=== PATIENT | female | born 1975 | race Native Hawaiian/Other Pacific Islander ===

== ENCOUNTER 2017-11-23 15:49 | Inpatient (IN) | payer BC ==
[2017-11-23 17:26] LABS: BASO % 0.7 % (0.0-2.0); EOS % 0.8 % (0.0-4.0); HEMOGLOBIN 13.8 g/dL (11.0-16.0); LYMPH # 1.1 K/uL (1.0-4.3); LYMPH % 25.2 % (20.0-40.0); MEAN CELL VOLUME 91.4 fL (81.0-99.0); MEAN CORPUSCULAR HEMOGLOBIN 31.5 pg (27.0-31.0); MEAN CORPUSCULAR HGB CONC 34.4 g/dL (33.0-37.0); MEAN PLATELET VOLUME 8.5 fL (7.2-11.7); MONO # 0.4 K/uL (0.0-0.8); NEUT # 2.7 K/uL (1.8-7.0); NEUT % 63.3 % (50.0-75.0); RBC 4.37 Mil/uL (3.80-5.20); RED CELL DISTRIBUTION WIDTH 14.7 % (11.5-14.5); WHITE BLOOD COUNT 4.3 K/uL (4.8-10.8)
[2017-11-23 17:33] LABS: HCG,QUALITATIVE URINE NEGATIVE (NEGATIVE); SQUAMOUS EPITHIAL 1 /hpf (0-5); URINE BACTERIA OCC (<OCC); URINE BILIRUBIN NEGATIVE (NEGATIVE); URINE CLARITY Clear (Clear); URINE COLOR Straw (YELLOW); URINE GLUCOSE (UA) NORMAL (Normal); URINE PROTEIN NEGATIVE (NEGATIVE); URINE UROBILINOGEN NORMAL mg/dL (0.2-1.0)
[2017-11-23 17:37] LABS: URINE BLOOD 1+ (NEGATIVE); URINE LEUKOCYTE ESTERASE 1+ Leu/uL (Negative)
[2017-11-23 17:38] LABS: BARBITURATES, UR NEGATIVE (NEGATIVE); BENZODIAZEPINES, UR NEGATIVE (NEGATIVE); OPIATES, UR NEGATIVE (NEGATIVE); PHENCYCLIDINE, UR NEGATIVE (NEGATIVE)
[2017-11-23 17:47] LABS: ALB/GLOB RATIO 1.6 (1.0-2.1); BLOOD UREA NITROGEN 6 mg/dL (7-17); CALCIUM 9.4 mg/dl (8.6-10.4); GFR NON-AFRICAN AMERICAN > 60
[2017-11-23 17:54] LABS: ALT/SGPT 439 U/L (9-52); AST/SGOT 711 U/L (14-36)
--- NOTE | 2017-11-23 19:20 | C.PDOC ---
History Of Present Illness 42 year old female presents to the ED requesting detox from alcohol. Patient has a history of daily alcohol abuse. Currently she offers no physical complaints. Patient denies any suicidal ideation, homicidal ideation, or hallucinations. Time Seen by Provider: 11/23/17 16:33 Chief Complaint (Nursing): Substance Abuse History Per: Patient History/Exam Limitations: no limitations Onset/Duration Of Symptoms: Days Current Symptoms Are (Timing): Still Present Modifying Factor(s): Alcohol Past Medical History Reviewed: Historical Data, Nursing Documentation, Vital Signs Vital Signs: Last Vital Signs Temp 99 F 11/23/17 21:00 Pulse 87 11/23/17 21:00 Resp 18 11/23/17 21:00 BP 147/99 H 11/23/17 21:00 Pulse Ox 99 11/23/17 21:00 - Medical History PMH: GERD Other Surgeries: Breast biopsy Family History: States: No Known Family Hx - Social History Hx Alcohol Use: Yes Hx Substance Use: No Review Of Systems Except As Marked, All Systems Reviewed And Found Negative. Constitutional: Negative for: Fever Cardiovascular: Negative for: Chest Pain Respiratory: Negative for: Shortness of Breath Gastrointestinal: Negative for: Vomiting Neurological: Positive for: Other (alcohol abuse) Psych: Negative for: Suicidal ideation (or homicidal ideation), Withdrawal Physical Exam - Physical Exam Appears: Non-toxic, No Acute Distress Skin: Normal Color, Warm, Dry Head: Atraumatic, Normacephalic Eye(s): bilateral: Normal Inspection Oral Mucosa: Moist Neck: Normal ROM Chest: Symmetrical Cardiovascular: Rhythm Regular, No Friction Rub, No Murmur Respiratory: Normal Breath Sounds, No Accessory Muscle Use, Other (no respiratory distress) Gastrointestinal/Abdominal: Bowel Sounds (active), Soft, No Tenderness Back: Normal Inspection, No CVA Tenderness Extremity: Normal ROM, No Swelling Extremity: Bilateral: Atraumatic, Normal Color And Temperature, Normal ROM Neurological/Psych: Oriented x3, Normal Speech, Normal Motor Gait: Steady ED Course And Treatment - Laboratory Results Result Diagrams: 11/23/17 17:16 11/23/17 17:16 O2 Sat by Pulse Oximetry: 97 (RA) Pulse Ox Interpretation: Normal Medical Decision Making Medical Decision Making: Plan: Blood work and urine sent. Case discussed with nuclear worker technician, patient accepted under Dr. Miller service. 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 - Scribe Statement The provider has reviewed the documentation as recorded by the Scribe (Marah Gonzalez) All medical record entries made by the Scribe were at my direction and personally dictated by me. I have reviewed the chart and agree that the record accurately reflects my personal performance of the history, physical exam, medical decision making, and the department course for this patient. I have also personally directed, reviewed, and agree with the discharge instructions and disposition.
--- NOTE | 2017-11-23 19:21 | C.PDOC ---
Time Seen by Provider: 11/23/17 16:33 Chief Complaint (Nursing): Substance Abuse Past Medical History Vital Signs: Last Vital Signs Temp 98.8 F 11/23/17 16:04 Pulse 85 11/23/17 16:04 Resp 18 11/23/17 16:04 BP 141/95 H 11/23/17 16:04 Pulse Ox 97 11/23/17 16:04 - Social History Hx Alcohol Use: Yes Hx Substance Use: No ED Course And Treatment - Laboratory Results Result Diagrams: 11/23/17 17:16 11/23/17 17:16 O2 Sat by Pulse Oximetry: 97 Disposition - Disposition Forms: [facility] ([facility])
--- NOTE | 2017-11-23 21:02 | PCM.BM ---
<Barby Montoya - Last Filed: 11/23/17 21:02> Treatment Plan Problems - Problems identified on initial assessmt Potential for alcohol withdrawal Date Initiated: 11/23/17 Time Initiated: 21:02 Assessment reference: NA Status: Active Treatment assets and liabiliti Patient Assests: ADL independent, negotiates basic needs, cognitively intact Patient Liabilities: substance abuse (Alcohol), other (homelessness) - Milieu Protocol Maintain good personal hygiene: daily Encourage regular showers, daily Remind patient to perform daily oral care, daily Assist patient to perform ADL's Conduct patient checks and document Observation sheet: Q15 minutes Maintain personal safety: every shift Educate patient to report safety concerns to staff, every shift Monitor environment for contraband/sharps Medication safety: Monitor for expected outcome, potential side effects: every shift, Assess barriers to learning: every shift, Assess readiness for medication education: every shift <Magalys Love - Last Filed: 11/24/17 13:40> - Diagnosis (1) Alcohol dependence Status: Acute Interventions: 11/24/17 13:40 * Assess 7x/week regarding severity of withdrawal * Educate regarding risks, benefits, side effects and alternatives of medications * Use Motivational Interviewing for abstinence * Use CBT for relapse prevention * Medication management for withdrawal symptoms * Encourage medication assisted treatment * <Shaina Cesar - Last Filed: 11/26/17 14:05> Family Contact Family involvement: Famliy/SO not involved - Goals for Treatment Patient goals for treatment: Complete detox and apply for short-term rehab program. Discharge/Continuing Care - Education Needs Education Needs: Patient Medication, Patient Diagnosis/Disease Process, Patient Coping Skills, Patient Anger Management skills, Patient Placement options, Patient Community resources - Discharge Discharge Criteria: No longer exhibiting s/s of withdrawal, Reduction of target symptoms Discharge to:: Substance Abuse Rehab - Treatment Team Participation Patient/Family/SO Statement: 11/26/17 14:03 "I wanna go to [place]. I actually called them for rehab before I came in here..." Discussed with Family/SO: No Was Patient/Family/SO present at Treatment Team Meeting: Yes
[2017-11-24] MEDS: Multiple Vitamins Tab PO SCH (10:57)
[2017-11-24] MEDS: Pantoprazole 20 mg EC Tab PO SCH (10:57)
--- NOTE | 2017-11-24 13:40 | PCM.PSYCH ---
Initial Psychiatric Evaluation - Initial Psychiatric Evaluation Type of Admission: Voluntary Legal Status: Capacity Chief Complaint (in patient's own words): "I have to stop alcohol" History of Present Illness and Precipitating Events: The patient is seen, chart reviewed and case discussed. This is a 41-year-old single English Tuvaluan female, currently homeless and unemployed and she has no children. 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 She blames alcohol for this. She drinks a pint or more every day and she is started when she was 19 years old but it became a problem drinking in 2013. However, this is her first detox but she was at [facility] one time in the past for rehabilitation. She denies drugs and cigarettes. She reports significant withdrawal symptoms, nearing DTs. Past psych history: She feels depressed but hasn't been treated and is not suicidal. Family psych history: Father was an alcoholic, . Medical history: She has GERD and spotting for 2 weeks since she had her IUD placed. Also, her LFTs are extremely elevated, will rule out cirrhosis Current Medications: Active Medications Generic Name Dose Route Start Last Admin Trade Name Freq PRN Reason Stop Dose Admin Clonidine HCl 0.1 mg 11/23/17 20:28 11/23/17 21:22 Catapres PO 0.1 mg Q8 PRN Administration alcohol withdrawal Folic Acid 1 mg 11/24/17 10:00 11/24/17 10:57 Folic Acid PO 1 mg DAILY SHUN Administration Lorazepam 1 mg 11/23/17 20:27 11/24/17 09:01 Ativan PO 1 mg Q4 PRN Administration alcohol withdrawal Lorazepam 2 mg 11/24/17 10:00 11/24/17 10:57 Ativan PO 11/28/17 09:59 2 mg Q6H SHUN Administration Taper Multivitamins 1 tab 11/24/17 10:00 11/24/17 10:57 Hexavitamin PO 1 tab DAILY SHUN Administration Pantoprazole Sodium 20 mg 11/24/17 10:00 11/24/17 10:57 Protonix Ec Tab PO 20 mg DAILY SHUN Administration Thiamine HCl 100 mg 11/24/17 10:00 11/24/17 10:57 Vitamin B1 Tab PO 100 mg DAILY SHUN Administration Trazodone HCl 50 mg 11/23/17 20:29 Desyrel PO HS PRN Insomnia Past Psychiatric History - Past Psychiatric History Previous Treatment History: None Pertinent Medical Hx (Current Medical&Sleep Prob, Allergies): Allergies Allergy/AdvReac Type Severity Reaction Status Date / Time No Known Allergies Allergy Verified 11/23/17 16:08 Lansoprazole 15 mg PO DAILY 11/23/17 Review of Systems - Neurological Neurological: Tremor - Psychiatric Psychiatric: Abnormal Sleep Pattern, Anhedonia, Anxiety, Depression, Difficulty Concentrating. absent: Hallucinations, Homicidal Ideation, Paranoia, Suicidal Ideation Mental Status Examination - Personal Presentation Personal Presentation: Looks stated age - Affect Affect: Constricted - Motor Activity Motor Activity: Calm - Reliability in Providing Information Reliability in Providing Information: Good - Speech Speech: Organized - Mood Mood: Depressed, Anxious - Formal Thought Process Formal Thought Process: No Impairment - Cognitive Functions Orientation: Person, Place, Situation, Time Sensorium: Alert Attention/Concentration: Attentive Estimate of Intelligence: Average Judgement: Intact, as evidence by: Insight regarding need for hospitalization Memory: Recent intact, as evidence by: Ability to recall events of the day, Remote intact, as evidenced by: Abilit to recall sig. life events - Risk Risk: Seizure, Withdrawal, Diminished functioning - Strength & Assets Inventory Strength & Assets Inventory: Cooperative - Limitations Limitations: Living alone, Other DSM 5 DX - DSM 5 DSM 5 Diagnosis: alcohol withdrawal Alcohol use disorder, severe Depressive disorder unspecified - Recommended/Plan of Treatment Treatment Recommendations and Plan of Treatment: Taper withAtivan due to very elevated LFTs Protonix for GERD Gabapentin for augmentation if needed As needed medications All risks, benefits and alternatives of the meds discussed, and the pt agreed and understood. Attend groups and activities Supportive therapy and psychoeducation [place] for abstinence CBT for relapse prevention Encourage MAT Refer to rehab or IOP, and self-help groups Smoking cessation with [place] Nicotine patch if needed 34 min Projected ELOS: 5 days Prognosis: good with treatment
--- NOTE | 2017-11-24 19:32 | CP.PCM.CON ---
History of Present Illness - History of Present Illness History of Present Illness: 42 yo female G0 and with c/o of irregular bleeding on/off since Mirena IUD inserted in June 2017 Denies any Hx of irregular menses or any other Manager Home HX C/O's of smelly vaginal discharge for the past few weeks Requesting STD's testing to be done Review of Systems - Reproductive: Female Reproductive:Female: Spotting Between Cycles, Vaginal Discharge (for few weeks. No itching or burning), Vaginal Dryness (for a couple of weeks. Denies vaginal itching or burning), Vaginal Odor - Menstruation Menstruation: Abnormal Vaginal Bleeding Past Patient History - Past Medical History & Family History Past Medical History?: Yes - Past Social History Smoking Status: Never Smoked Alcohol: Other (Admitted for Alcohol detox) - CARDIAC Hx Cardiac Disorders: No (Patient denied) Hx Hypertension: No (Patient denied) - PULMONARY Hx Tuberculosis: No (Patient denied) - NEUROLOGICAL HX Cerebrovascular Accident: No (Patient denied) Hx Seizures: No (Patient denied) - HEMATOLOGICAL/ONCOLOGICAL Hx Cancer: No (Patient denied) Hx Human Immunodeficiency Virus (HIV): No (Patient denied) - MUSCULOSKELETAL/RHEUMATOLOGICAL Hx Falls: No - GASTROINTESTINAL Hx Gastrointestinal Disorders: Yes Hx Gastroesophageal Reflux: Yes - GENITOURINARY/GYNECOLOGICAL Hx Sexually Transmitted Disorders: No (Patient denied) Hx Urinary Tract Infection: Yes (and treated, per patient) - PSYCHIATRIC Hx Substance Use: Yes (Alcohol) - SURGICAL HISTORY Hx Surgeries: Yes Hx Breast Biopsy: Yes (RIGHT) - ANESTHESIA Hx Anesthesia: Yes Hx Anesthesia Reactions: No Meds Allergies/Adverse Reactions: Allergies Allergy/AdvReac Type Severity Reaction Status Date / Time No Known Allergies Allergy Verified 11/23/17 16:08 - Medications Medications: Current Medications Clonidine HCl (Catapres) 0.1 mg PO Q8 PRN PRN Reason: alcohol withdrawal Last Admin: 11/23/17 21:22 Dose: 0.1 mg Folic Acid (Folic Acid) 1 mg PO DAILY SHUN Last Admin: 11/24/17 10:57 Dose: 1 mg Lorazepam (Ativan) 1 mg PO Q4 PRN PRN Reason: alcohol withdrawal Last Admin: 11/24/17 09:01 Dose: 1 mg Lorazepam (Ativan) 2 mg PO Q6H SHUN PRN Reason: Taper Stop: 11/28/17 09:59 Last Admin: 11/24/17 16:30 Dose: 2 mg Multivitamins (Hexavitamin) 1 tab PO DAILY [facility] Last Admin: 11/24/17 10:57 Dose: 1 tab Pantoprazole Sodium (Protonix Ec Tab) 20 mg PO DAILY [facility] Last Admin: 11/24/17 10:57 Dose: 20 mg Thiamine HCl (Vitamin B1 Tab) 100 mg PO DAILY [facility] Last Admin: 11/24/17 10:57 Dose: 100 mg Trazodone HCl (Desyrel) 50 mg PO PRN PRN Reason: Insomnia Physical Exam - Constitutional Appears: No Acute Distress - Exam Speculum exam: Cervical Discharge (Whittish, fishy smell discharge, No vaginal bleeding or spoting noted) Bimanual exam: NORMAL BIMANUAL EXAM Results - Vital Signs Recent Vital Signs: Last Vital Signs Temp 98.4 F 11/24/17 18:35 Pulse 74 11/24/17 18:35 Resp 18 11/24/17 18:35 BP 133/93 H 11/24/17 18:35 Pulse Ox 98 11/24/17 18:35 - Labs Result Diagrams: 11/23/17 17:16 11/23/17 17:16 Assessment & Plan - Assessment and Plan (Free Text) Assessment: 1. Irregular menses for the past 2-3 months and probably related to Mirena IUD, a common side effect, or Pre-menopausal state. No bleeding at present 2. IUD string visualized and palpated and appear correctly placed 3. Vaginal discharge, fishy smell and clinical c/w BV 4. Requested STD's to be done and ordered 5. Hx of Benign breast lump excised 6. Last PAP Smear at beginning of year and always WNL, per patient Plan: STD's ordered Started on Flagyl and Diflucan Trich culture obtained and sent GC and Chlamydia ordered in urine Advised to f/up with her Christmas Tree Farmer upon discharge Counseled re safe sex practices - Date & Time Date: 11/24/17 Time: 19:45
--- NOTE | 2017-11-25 09:29 | PCM.PYCHPN ---
Psychiatric Progress Note - Psychiatric Progress Note Patient seen today, length of contact: 16 min Medication Change: Yes Medical Record Reviewed: Yes Mental Status Examination - Cognitive Function Orientation: Person, Place, Situation, Time Memory: Intact Attention: WNL Concentration: Poor Association: WNL Fund of Knowledge: Poor - Mood Mood: Depressed, Anxious - Affect Affect: Constricted - Speech Speech: Soft - Formal Thought Process Formal Thought Process: No Impairment - Suicidal Ideation Suicidal Ideation: No - Homicidal Ideation Homicidal Ideation: No Goal/Treatment Plan - Goal/Treatment Plan Need for Continued Stay: Severe depression anxiety, Severe functional impairment Progress Toward Problem(s) and Goals/Treatment Plan: alcohol withdrawal Alcohol use disorder, severe Depressive disorder unspecified Taper withAtivan due to very elevated LFTs Protonix for GERD Gabapentin for augmentation if needed As needed medications All risks, benefits and alternatives of the meds discussed, and the pt agreed and understood. Attend groups and activities Supportive therapy and psychoeducation [place] for abstinence CBT for relapse prevention Encourage MAT Refer to rehab or IOP, and self-help groups Smoking cessation with [place] Nicotine patch if needed
[2017-11-25] MEDS: Multiple Vitamins Tab PO SCH (10:05)
[2017-11-25] MEDS: Pantoprazole 20 mg EC Tab PO SCH (10:05)
[2017-11-25] MEDS ORDERED: Bacitracin Ointment 30 GM TUBE TOP PRN (11:39)
[2017-11-26 09:15] LABS: HEPATITIS B SURFACE AG Negative (NEGATIVE)
[2017-11-26] MEDS: Multiple Vitamins Tab PO SCH (09:19)
[2017-11-26] MEDS: Pantoprazole 20 mg EC Tab PO SCH (09:19)
[2017-11-26 09:32] LABS: HEPATITIS C ANTIBODY NEGATIVE (NEGATIVE)
--- NOTE | 2017-11-26 14:29 | PCM.PYCHPN ---
Psychiatric Progress Note - Psychiatric Progress Note Patient seen today, length of contact: 17 min Patient Chief Complaint: "I am not well" Problems Identified/Issues Discussed: The pt is seen, chart reviewed, case discussed with staff. The pt is compliant with medications and reports no side-effects. Symptoms are improving but needs more time to stabilize. Pt attends groups and activities. Support given, psycho-education provided. After care discussed. Medication Change: Yes (detox changes daily) Medical Record Reviewed: Yes Mental Status Examination - Cognitive Function Orientation: Person, Place, Situation, Time Memory: Intact Attention: WNL Concentration: Poor Association: WNL Fund of Knowledge: Poor - Mood Mood: Depressed, Anxious - Affect Affect: Constricted - Speech Speech: Soft - Formal Thought Process Formal Thought Process: No Impairment - Suicidal Ideation Suicidal Ideation: No - Homicidal Ideation Homicidal Ideation: No Goal/Treatment Plan - Goal/Treatment Plan Need for Continued Stay: Severe depression anxiety, Discharge may exacerbated symptoms, Severe functional impairment Progress Toward Problem(s) and Goals/Treatment Plan: Taper withAtivan due to very elevated LFTs Protonix for GERD Gabapentin for augmentation if needed As needed medications All risks, benefits and alternatives of the meds discussed, and the pt agreed and understood. Attend groups and activities Supportive therapy and psychoeducation [place] for abstinence CBT for relapse prevention Encourage MAT Refer to rehab or IOP, and self-help groups Smoking cessation with [place] Nicotine patch if needed Estimated Date of D/C: 11/28/17
[2017-11-27 08:20] LABS: ALB/GLOB RATIO 1.4 (1.0-2.1); ALBUMIN 3.9 g/dL (3.5-5.0); ALT/SGPT 301 U/L (9-52); AST/SGOT 244 U/L (14-36); BLOOD UREA NITROGEN 14 mg/dL (7-17); GFR NON-AFRICAN AMERICAN > 60
[2017-11-27] MEDS: Pantoprazole 20 mg EC Tab PO SCH (09:34)
[2017-11-27] MEDS: Multiple Vitamins Tab PO SCH (09:34)
[2017-11-27 13:05] VITALS: RESP 18
--- NOTE | 2017-11-27 14:34 | PCM.PYCHPN ---
Psychiatric Progress Note - Psychiatric Progress Note Patient seen today, length of contact: 17 min Patient Chief Complaint: "I am not well" Problems Identified/Issues Discussed: The pt is seen, chart reviewed, case discussed with staff. The pt is compliant with medications and reports no side-effects. Symptoms are improving but needs more time to stabilize. Pt attends groups and activities. Support given, psycho-education provided. After care discussed. Medication Change: Yes (detox changes daily) Medical Record Reviewed: Yes Mental Status Examination - Cognitive Function Orientation: Person, Place, Situation, Time Memory: Intact Attention: WNL Concentration: Poor Association: WNL Fund of Knowledge: Poor - Mood Mood: Depressed, Anxious - Affect Affect: Constricted - Speech Speech: Soft - Formal Thought Process Formal Thought Process: No Impairment - Suicidal Ideation Suicidal Ideation: No - Homicidal Ideation Homicidal Ideation: No Goal/Treatment Plan - Goal/Treatment Plan Need for Continued Stay: Severe depression anxiety, Discharge may exacerbated symptoms, Severe functional impairment Progress Toward Problem(s) and Goals/Treatment Plan: Taper withAtivan due to very elevated LFTs Protonix for GERD Gabapentin for augmentation if needed As needed medications All risks, benefits and alternatives of the meds discussed, and the pt agreed and understood. Attend groups and activities Supportive therapy and psychoeducation [place] for abstinence CBT for relapse prevention Encourage MAT Refer to rehab or IOP, and self-help groups Smoking cessation with [place] Nicotine patch if needed Estimated Date of D/C: 11/28/17
--- NOTE | 2017-11-28 08:38 | PCM.PYCHDC ---
Mental Status Examination - Mental Status Examination Orientation: Person Discharge Summary - Discharge Note Consultations:: List each consultation separately and include: 1. Reason for request. 2. Findings. 3. Follow-up Summary of Hospital Course include:: 1. Description of specific treatment plan utilized for patients during their course of treatmen. 2. Summarize the time- course for resolution of acute symptoms and/or regressed behaviors. 3. Describe issues identified and worked on during hospitalization. 4. Describe medication utilized. 5. Describe medical problems identified and treated. 6. Reassessment of suicide risk Summary of Hospital Course: The patient is seen, chart reviewed and case discussed. This is a 41-year-old single Irish [place]an female, currently homeless and unemployed and she has no children. 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 She blames alcohol for this. She drinks a pint or more every day and she is started when she was 19 years old but it became a problem drinking in 2013. However, this is her first detox but she was at [facility] one time in the past for rehabilitation. She denies drugs and cigarettes. She reports significant withdrawal symptoms, nearing DTs. Past psych history: She feels depressed but hasn't been treated and is not suicidal. Family psych history: Father was an alcoholic, . Medical history: She has GERD and spotting for 2 weeks since she had her IUD placed. Also, her LFTs are extremely elevated, will rule out cirrhosis She will attend [place] rehab - Diagnosis (1) Alcohol dependence Current Visit: Yes Status: Acute - Final Diagnosis (DSM 5) Condition upon Discharge: STABLE Disposition: HOME/ ROUTINE Follow-up Treatment Plan: Taper withAtivan due to very elevated LFTs Protonix for GERD Gabapentin for augmentation if needed As needed medications All risks, benefits and alternatives of the meds discussed, and the pt agreed and understood. Attend groups and activities Supportive therapy and psychoeducation [place] for abstinence CBT for relapse prevention Encourage MAT Refer to rehab or IOP, and self-help groups Smoking cessation with [place] Nicotine patch if needed Prescriptions/Medication Reconciliation: Gabapentin [Neurontin] 300 mg PO BID #60 cap metroNIDAZOLE [Flagyl] 500 mg PO Q8 #30 tab Pantoprazole [Protonix EC Tab] 20 mg PO DAILY #30 ect traZODone [Desyrel] 50 mg PO HS PRN #30 tab PRN Reason: Insomnia
[2017-11-28] MEDS: Multiple Vitamins Tab PO SCH (09:16)
[2017-11-28] MEDS: Pantoprazole 20 mg EC Tab PO SCH (09:17)
[2017-11-28 10:27] VITALS: BP 114/77; PULSE 89; TEMP 98.8; O2SAT 98
== END 2017-11-28 10:00 | disposition home or self-care (01) | DRG 895 ==
LOC: C.ER 15:49 → C.7D 19:09
PROVIDERS: ADMIT Psychiatry & Neurology Psychiatry; ATTEND Psychiatry & Neurology Psychiatry
PROC: HZ2ZZZZ Detoxification Services for Substance Abuse Treatment (ICD-10-PCS; principal; 2017-11-23)
PROC: HZ59ZZZ Individual Psychotherapy for Substance Abuse Treatment, Supportive (ICD-10-PCS; 2017-11-23)
PROC: HZ46ZZZ Group Counseling for Substance Abuse Treatment, Psychoeducation (ICD-10-PCS; 2017-11-23)
PROC: GZ3ZZZZ Medication Management (ICD-10-PCS; 2017-11-23)
DX: F10.231 Alcohol dependence with withdrawal delirium (principal); F32.9 Major depressive disorder, single episode, unspecified; K21.9 Gastro-esophageal reflux disease without esophagitis; N89.8 Other specified noninflammatory disorders of vagina; N92.4 Excessive bleeding in the premenopausal period; T83.83XA Hemorrhage due to genitourinary prosthetic devices, implants and grafts, initial encounter; N93.8 Other specified abnormal uterine and vaginal bleeding; Y76.8 Miscellaneous obstetric and gynecological devices associated with adverse incidents, not elsewhere classified; Z59.0 Homelessness; Z87.440 Personal history of urinary (tract) infections; Z81.1 Family history of alcohol abuse and dependence